=== PATIENT | female | born 1970 | race Asian ===

== ENCOUNTER 2018-07-24 09:28 | Outpatient (CLI) | payer BC | END 2018-07-24 23:59 | disposition home or self-care (01) | LOC: LAB 09:28 | PROVIDERS: ATTEND Family Medicine | DX: K21.9 Gastro-esophageal reflux disease without esophagitis (principal); R22.2 Localized swelling, mass and lump, trunk; M41.85 Other forms of scoliosis, thoracolumbar region | CPT/HCPCS: 36415; 71046; 86677 ==

== ENCOUNTER 2020-03-15 10:25 | Outpatient (CLI) | payer BC ==
[2020-03-15 11:26] LABS: CALCIUM, SERUM 9.5 mg/dL (8.5-10.1); CREATININE 0.6 mg/dL (0.6-1.3); POTASSIUM 3.6 mmol/L (3.5-5.1)
== END 2020-03-15 23:59 | disposition home or self-care (01) ==
LOC: LAB 10:25
PROVIDERS: ATTEND Family Medicine
DX: C50.419 Malignant neoplasm of upper-outer quadrant of unspecified female breast (principal)
CPT/HCPCS: 36415; 80048-TC